=== PATIENT | male | born 1955 | race Caucasian/White ===

== ENCOUNTER 2021-05-06 11:23 | Emergency (ER) | payer BC ==
[~2021-05-06] VITALS: Ht 182.9 cm; Wt 109.1 kg
[2021-05-06 11:58] VITALS: Ht 182.9 cm; Wt 109.1 kg
[2021-05-06] MEDS ORDERED: BUSPAR5 MG PO (11:59)
[2021-05-06 12:31] LABS: SARS-CoV-2 ANTIGEN NEGATIVE- SARS-COV-2 (NEGATIVE)
[2021-05-06 13:08] LABS: BASOPHILS 0.4 % (0-2); EOSINOPHILS 1.5 % (0-7); HEMATOCRIT 42.1 % (42.0-54.0); LYMPHOCYTES 40.7 % (15-50); MCH 29.8 pg (26.0-34.0); MCHC 33.3 g/dL (31.0-37.0); MCV 89.6 fL (80.0-100.0); MEAN PLATELET VOLUME 7.7 fL (7.4-10.4); NEUTROPHILS 49.4 % (40-80); PLATELET COUNT 241 10x3/uL (130-400); RDW 14.2 % (11.5-14.5); WBC 6.8 10x3/uL (4.8-10.8)
[2021-05-06 13:12] LABS: ANION GAP 10.1 mmol/L (8-16); CALCIUM 8.8 mg/dL (8.5-10.1); CARBON DIOXIDE 27.8 mmol/L (21.0-32.0); CREATININE - SERUM 1.1 mg/dL (0.6-1.3); POTASSIUM - SERUM 3.9 mmol/L (3.5-5.1)
[2021-05-06 13:15] LABS: ALBUMIN 3.5 g/dL (3.4-5.0); BILIRUBIN - TOTAL 0.36 mg/dL (0.2-1.3); PROTEIN - SERUM 6.8 g/dL (6.4-8.2)
[2021-05-06] MEDS ORDERED: ZOFRAN ODT4 MG/UDTAB PO (14:05)
[2021-05-06 14:35] VITALS: BP 126/62
== END 2021-05-06 14:36 | disposition home or self-care (01) ==
LOC: D.ER 11:23
PROVIDERS: Family Medicine
DX: R50.9 Fever, unspecified (principal); B34.9 Viral infection, unspecified; R19.7 Diarrhea, unspecified; R73.9 Hyperglycemia, unspecified